=== PATIENT | male | born 1980 | race Caucasian/White ===

== ENCOUNTER 2016-05-19 14:26 | Emergency (ER) | payer OTHER ==
--- NOTE | 2016-05-19 15:23 | DIAGNOSTIC IMAGING REPORT ---
PROCEDURE: CT HEAD WITHOUT CONTRAST INDICATION: HEADACHE TECHNIQUE: Axial CT images were acquired through the head. Coronal and sagittal reformations were created. COMPARISON: None. FINDINGS: No intracranial hemorrhage or extraaxial fluid collections. Ventricles are normal in size, shape and position. There is no mass, mass effect or midline shift. The garrison-white matter differentiation is normal. There is no edema. The calvarium is intact. The paranasal sinuses and mastoid air cells are normally aerated. The extracranial soft tissues and orbits are normal. IMPRESSION: 1. No CT evidence of acute intracranial process. All CT scans at this facility use dose modulation, iterative reconstruction, and/or weight-based dosing when appropriate to reduce radiation dose to as low as reasonably achievable.
--- NOTE | 2016-05-19 15:25 | DIAGNOSTIC IMAGING REPORT ---
PROCEDURE: XR CHEST 2 VIEW INDICATION: CHEST PAIN TECHNIQUE: PA and lateral views. COMPARISON: Chest 01/30/2014 FINDINGS:Allowing for suboptimal inspiration, there is minor linear scarring or subsegmental atelectasis at one of the anterior lung bases (best seen on the lateral view). Lungs are otherwise clear. Heart mediastinum are normal. Thorax is normal. IMPRESSION: 1. Minor linear scarring or subsegmental atelectasis at one of the lung bases. 2. Otherwise negative chest.
--- NOTE | 2016-05-19 15:35 | DIAGNOSTIC IMAGING REPORT ---
PROCEDURE: XR SHOULDER 2 OR MORE VW-RIGHT INDICATION: TRAUMA/INJURY TECHNIQUE: Three views. COMPARISON: shoulder 01/30/2014 FINDINGS: Osseous structures and joint spaces are normal. IMPRESSION: 1. Normal right shoulder.
--- NOTE | 2016-05-19 15:57 | ED ORDER SUMMARY ---
..... Patient: CHRISTIANO ROWLAND OrderSheet [facility] VisitID: [id number] [place] [address] 36y, M Registration Date/Time: 05/19/2016 ORDER SHEET Weight: 122.7 kg (stated) Allergies: PCN GENERAL ORDERS: Stack Supervisor (Continuous) (14:38 05/19/2016 EKoroleva P.A.-C) (15:08 HOShaughnessy R.N.) Chest 2V Urgent (14:38 05/19/2016 EKoroleva P.A.-C) (Ack 14:39 NHouse ER Tech1) (15:08 HOShaughnessy R.N.) CT Head wo Cont Urgent (14:38 05/19/2016 EKoroleva P.A.-C) (Ack 14:39 NHouse ER Tech1) (15:08 HOShaughnessy R.N.) Cardiac Panel Stat (14:38 05/19/2016 EKoroleva P.A.-C) (Ack 14:39 NHouse ER Tech1) (14:56 LNations ER Tech1) EKG - ER Stat (14:38 05/19/2016 EKoroleva P.A.-C) (14:45 SBalde R.N.) Shoulder 2V or more Right Urgent (14:39 05/19/2016 EKoroleva P.A.-C) (Ack 14:40 NHouse ER Tech1) (15:08 HOShaughnessy R.N.) MEDICATION ORDERS: IV FLUIDS: ORDER SHEET NOTES: [Electronically signed by Sunny Hudson R.N. (16:06 05/19/2016)] [Electronically signed by Sarika Nelson P.A.-C (16:22 05/19/2016)] [Electronically locked/signed by Sunny Hudson R.N. (16:06 05/19/2016)]
--- NOTE | 2016-05-19 15:57 | ED ORDER SUMMARY ---
..... Patient: CHRISTIANO ROWLAND OrderSheet [facility] VisitID: [id number] [place] [address] 36y, M Registration Date/Time: 05/19/2016 ORDER SHEET Weight: 122.7 kg (stated) Allergies: PCN GENERAL ORDERS: Irrigator Sprinkling System (Continuous) (14:38 05/19/2016 EKoroleva P.A.-C) (15:08 HOShaughnessy R.N.) Chest 2V Urgent (14:38 05/19/2016 EKoroleva P.A.-C) (Ack 14:39 NHouse ER Tech1) (15:08 HOShaughnessy R.N.) CT Head wo Cont Urgent (14:38 05/19/2016 EKoroleva P.A.-C) (Ack 14:39 NHouse ER Tech1) (15:08 HOShaughnessy R.N.) Cardiac Panel Stat (14:38 05/19/2016 EKoroleva P.A.-C) (Ack 14:39 NHouse ER Tech1) (14:56 LNations ER Tech1) EKG - ER Stat (14:38 05/19/2016 EKoroleva P.A.-C) (14:45 SBalde R.N.) Shoulder 2V or more Right Urgent (14:39 05/19/2016 EKoroleva P.A.-C) (Ack 14:40 NHouse ER Tech1) (15:08 HOShaughnessy R.N.) MEDICATION ORDERS: IV FLUIDS: ORDER SHEET NOTES: [Electronically signed by Sunny uHdson R.N. (16:06 05/19/2016)] [Electronically signed by Sarika Nelson P.A.-C (16:22 05/19/2016)] [Electronically locked/signed by Sunny Hudson R.N. (16:06 05/19/2016)]
--- NOTE | 2016-05-19 15:57 | ED NURSING NOTES ---
Clinical Report - Nurses [facility] [address] [place] [address] 05/19/2016 14:28 Patient: CHRISTIANO ROWLAND TRIAGE Triage time 14:35 May 19 2016. Acuity: LEVEL 3. Chief Complaint: DIZZINESS. Alert. No acute distress. AMELIA COMA SCORE: Amelia Coma Scale: 15- eyes open spontaneously (4); best verbal response- oriented x 4 (5); best motor response- obeys commands (6). --14:43 Delilah Lowery R.N. 14:35 05/19/16. BP: 147/105. HR: 102. RR: 18. O2 saturation: 98%. Temp: 98.3 F. --14:43 Delilah Lowery R.N. Weight: 122.7 kg stated. Height/Length: 69 inches Per Patient. BMI: 40. --14:35 Delilah Lowery R.N. Medications Fioricet Oral (Capsule 50-300-40 mg) 50/325mg (Dr. Lott manages). HumaLOG Subcutaneous. Hydrocodone-Acetaminophen Oral (Tablet 10-325 mg) (Dr. Lott manages). Insulin Pump. Maxiline (for Vertigo). Topamax Oral, as needed (for Migraines). --14:38 Delilah Lowery R.N. Medication/allergy information source: the patient. --14:43 Delilah Lowery R.N. Allergies PCN. --14:38 Delilah Lowery R.N. History Arrived by private vehicle. Historian: patient. Accompanied by family and spouse. Primary physician (Dr. Lott/ Dr. Irizarry - Neuro). ( Pt states he passed out in the kitchen this am while pouring a cup of coffee. He states he has a Hx of this d/t his Neuropathy. Sees a Neurologist at [facility] for this. Fell onto his Right Shoulder. C/O pain.). This started just prior to arrival 0930 am. Patient was last known well (0925 this am.). 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 PAST MEDICAL HX: Immunizations: seasonal influenza. SOCIAL HX: Former smoker. Occasional alcohol use. History of drug use: marijuana. No infectious disease exposure. FALL RISK ASSESSMENT: Fall risk assessment completed. No fall risk identified. NUTRITIONAL RISK ASSESSMENT: The nutritional risk assessment revealed no deficiencies. FUNCTIONAL ASSESSMENT: Functional assessment: no impairments noted. LEARNING NEEDS ASSESSMENT: The learning needs assessment revealed no barriers. SKIN INTEGRITY ASSESSMENT: Skin integrity risk assessment completed. No skin integrity risk identified. --14:43 Delilah Lowery R.N. PHYSICAL ASSESSMENT Ambulatory to room. GENERAL / NEURO / PSYCH: Oriented X 4. Speech within normal limits. RESPIRATORY: Respirations not labored. CVS: Capillary refill less than 2 seconds. --14:44 Delilah Lowery R.N. NURSING PROGRESS NOTES EKG time: (1443). EKG was performed by a tech and shown to the PA. --14:43 Delilah Lowery R.N. ( Pt has had his EKG and Labs done in the triage room.). --14:44 Delilah Lowery R.N. ( Labs being drawn by Nicole scooping machine tender.). --14:45 Delilah Lowery R.N. Patient transported to DC by wheelchair with tech. --14:55 Delilah Lowery R.N. Patient ID band checked for patient name and birthdate: patient confirmed. Blood samples drawn from the left antecubital space with 23g butterfly by tech per protocol ; labeled in presence of the patient: rainbow set and red, green, purple and blue top. --14:56 Nicole Mac ER Tech1 Finger stick glucose: 146 mg/dL; performed by nurse; result shown to the ED physician. The patient is calm and resting quietly. --15:21 Sunny Hudson R.N. 15:20 05/19/16. BP: 140/99. HR: 93. RR: 16. O2 saturation: 97%. --15:21 Sunny Hudson R.N. DISPOSITION / DISCHARGE Condition at departure: improved. The goals identified in the patient's plan of care were met. Fall risk assessment completed. Risk factors identified include patient history of fainting. No learning barriers present. Discharge instructions provided and reviewed with the patient. Reviewed medication(s) side effects, precautions, dosing and course information. Patient verbalized understanding. Written instructions provided in [place]. The patient was discharged home and accompanied by family. He left the Emergency Department ambulatory and via private vehicle. Spouse driving. --15:59 Sunny Hudson R.N. 15:58 05/19/16. BP: 131/85. HR: 100. RR: 16. O2 saturation: 94%. Temp: 98.2 F (oral). --15:59 Sunny Hudson R.N. Departure time: 1603 PM. --16:03 Sunny Hudson R.N. Locked/Released at 05/19/2016 16:06 by Sunny Hudson R.N.
--- NOTE | 2016-05-19 15:57 | ED NURSING NOTES ---
Clinical Report - Nurses [facility] [address] [place] [address] 05/19/2016 14:28 Patient: CHRISTIANO ROWLAND TRIAGE Triage time 14:35 May 19 2016. Acuity: LEVEL 3. Chief Complaint: DIZZINESS. Alert. No acute distress. AMELIA COMA SCORE: Amelia Coma Scale: 15- eyes open spontaneously (4); best verbal response- oriented x 4 (5); best motor response- obeys commands (6). --14:43 Delilah Lowery R.N. 14:35 05/19/16. BP: 147/105. HR: 102. RR: 18. O2 saturation: 98%. Temp: 98.3 F. --14:43 Delilah Lowery R.N. Weight: 122.7 kg stated. Height/Length: 69 inches Per Patient. BMI: 40. --14:35 Delilah Lowery R.N. Medications Fioricet Oral (Capsule 50-300-40 mg) 50/325mg (Dr. Lott manages). HumaLOG Subcutaneous. Hydrocodone-Acetaminophen Oral (Tablet 10-325 mg) (Dr. Lott manages). Insulin Pump. Maxiline (for Vertigo). Topamax Oral, as needed (for Migraines). --14:38 Delilah Lowery R.N. Medication/allergy information source: the patient. --14:43 Delilah Lowery R.N. Allergies PCN. --14:38 Delilah Lowery R.N. History Arrived by private vehicle. Historian: patient. Accompanied by family and spouse. Primary physician (Dr. Lott/ Dr. Irizarry - Neuro). ( Pt states he passed out in the kitchen this am while pouring a cup of coffee. He states he has a Hx of this d/t his Neuropathy. Sees a Neurologist at [facility] for this. Fell onto his Right Shoulder. C/O pain.). This started just prior to arrival 0930 am. Patient was last known well (0925 this am.). 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 PAST MEDICAL HX: Immunizations: seasonal influenza. SOCIAL HX: Former smoker. Occasional alcohol use. History of drug use: marijuana. No infectious disease exposure. FALL RISK ASSESSMENT: Fall risk assessment completed. No fall risk identified. NUTRITIONAL RISK ASSESSMENT: The nutritional risk assessment revealed no deficiencies. FUNCTIONAL ASSESSMENT: Functional assessment: no impairments noted. LEARNING NEEDS ASSESSMENT: The learning needs assessment revealed no barriers. SKIN INTEGRITY ASSESSMENT: Skin integrity risk assessment completed. No skin integrity risk identified. --14:43 Delilah Lowery R.N. PHYSICAL ASSESSMENT Ambulatory to room. GENERAL / NEURO / PSYCH: Oriented X 4. Speech within normal limits. RESPIRATORY: Respirations not labored. CVS: Capillary refill less than 2 seconds. --14:44 Delilah Lowery R.N. NURSING PROGRESS NOTES EKG time: (1443). EKG was performed by a tech and shown to the PA. --14:43 Delilah Lowery R.N. ( Pt has had his EKG and Labs done in the triage room.). --14:44 Delilah Lowery R.N. ( Labs being drawn by Nicole spool cleaner hand.). --14:45 Delilah Lowery R.N. Patient transported to [place] by wheelchair with tech. --14:55 Delilah Lowery R.N. Patient ID band checked for patient name and birthdate: patient confirmed. Blood samples drawn from the left antecubital space with 23g butterfly by tech per protocol ; labeled in presence of the patient: rainbow set and red, green, purple and blue top. --14:56 Nicole Mac ER Tech1 Finger stick glucose: 146 mg/dL; performed by nurse; result shown to the ED physician. The patient is calm and resting quietly. --15:21 Sunny Hudson R.N. 15:20 05/19/16. BP: 140/99. HR: 93. RR: 16. O2 saturation: 97%. --15:21 Sunny Hudson R.N. DISPOSITION / DISCHARGE Condition at departure: improved. The goals identified in the patient's plan of care were met. Fall risk assessment completed. Risk factors identified include patient history of fainting. No learning barriers present. Discharge instructions provided and reviewed with the patient. Reviewed medication(s) side effects, precautions, dosing and course information. Patient verbalized understanding. Written instructions provided in [place]ian. The patient was discharged home and accompanied by family. He left the Emergency Department ambulatory and via private vehicle. Spouse driving. --15:59 Sunny Hudson R.N. 15:58 05/19/16. BP: 131/85. HR: 100. RR: 16. O2 saturation: 94%. Temp: 98.2 F (oral). --15:59 Sunny Hudson R.N. Departure time: 1603 PM. --16:03 Sunny Hudson R.N. Locked/Released at 05/19/2016 16:06 by Sunny Hudson R.N.
--- NOTE | 2016-05-19 15:57 | ED CLINICAL REPORT ---
Clinical Report - Physicians/Mid Levels [facility] [address] [place] [address] 05/19/2016 14:28 Patient: CHRISTIANO ROWLAND [facility]#: [id number] Time Seen: 14:39 May 19 2016. Arrived- By private vehicle. Historian- patient. HISTORY OF PRESENT ILLNESS Chief Complaint: SINGLE SYNCOPAL EPISODE. The patient has recovered. This occurred 9 am. Event was not witnessed. The patient had preceding symptoms of light-headedness and nausea. He had preceding symptoms of dim vision (everything went black). The patient felt faint. Location of injuries- (r. shoulder). (36-year-old male, with a history of neurology, which at times causes him to have syncopal events, had one today, while standing, fell, onto his right shoulder, has had pain. Has had a headache. Feels dizzy.). REVIEW OF SYSTEMS No vomiting. All systems otherwise negative, except as recorded above. SOCIAL HISTORY Former smoker. Alcohol use. History of drug use: marijuana. ADDITIONAL NOTES The nursing notes have been reviewed. PHYSICAL EXAM Vital Signs: 05/19/2016 14:35 BP: 147/105. HR: 102. RR: 18. O2 saturation: 98%. Temp: 98.3 F. Appearance: Alert. No acute distress. Eyes: Pupils equal, round and reactive to light. No nystagmus. ENT: Normal ENT inspection. Moist mucous membranes. Pharynx normal. Neck: Normal inspection. Neck supple. No meningeal signs. CVS: Normal heart rate and rhythm. Heart sounds normal. Pulses normal. Rhythm normal. No cardiac murmur. Respiratory: No respiratory distress. No respiratory distress. Breath sounds normal. No decreased air movement. Abdomen: Soft. Back: Normal inspection. No CVA tenderness. Skin: Normal skin color. Extremities: Right clavicle area. No tenderness or laceration. Right shoulder: mild tenderness located in the anterior aspect of the shoulder. Limited ROM (diminished abduction). Neurovascular intact distally. No swelling, ecchymosis, puncture wound, foreign body or deformity. Neuro: Alert. Oriented X 3. Mood/affect normal. Speech normal. Cranial nerves normal (as tested). No cerebellar findings. No motor deficit. No sensory deficit. LABS, X-RAYS, AND EKG EKG: EKG time: (1443). No acute process. No acute ischemia. Normal EKG. Rate: 89. Normal P waves. Normal QRS complex. Normal axis. Normal ST and T waves and QT. The study has been interpreted contemporaneously. The study has been independently viewed by me. The EKG appears to be a good tracing. Chest X-ray: (IMPRESSION: 1. Minor linear scarring or subsegmental atelectasis at one of the lung bases. 2. Otherwise negative chest. Electronically Final signed by:Keagan Camara MD 05/19/2016 3:28:21 PM). Rt Shoulder X-ray: (IMPRESSION: 1. Normal right shoulder. Electronically Final signed by:Keagan Camara MD 05/19/2016 3:38:41 PM). CT Head: (IMPRESSION: 1. No CT evidence of acute intracranial process. All CT scans at this facility use dose modulation, iterative reconstruction, and/or weight-based dosing when appropriate to reduce radiation dose to as low as reasonably achievable. Electronically Final signed by:Keagan Camara MD 05/19/2016 3:26:59 PM). Laboratory Tests: CBC w Diff: (AKI: 05/19/2016 14:50) ( MsgRcvd 05/19/2016 15:05) Final results Test Result Flag Units (Reference) WHITE BLOOD COUNT 7.9 K/uL (4.5-11.5) RED BLOOD COUNT 5.33 M/uL (4.50-5.90) HEMOGLOBIN 15.9 gm/dL (13.5-17.5) HEMATOCRIT 47.3 % (41.0-53.0) MEAN CELL VOLUME 89 fL (80-100) MEAN CORPUSCULAR HGB 30 pg (26-34) MEAN CORPUSCULAR HGB CONC 34 g/dL (31-37) RED CELL DISTRIBUTION WIDTH 12.6 % (11.6-14.8) PLATELET COUNT 409 H K/uL (150-400) NEUTROPHIL % 60.5 % (50-75) LYMPH % 29.3 % (25-40) MONO % 6.8 % (3-14) EOSINOPHIL % 2.9 % (0-4) BASOPHIL % 0.5 % (0-2) CHEM 13 PANEL: (AKI: 05/19/2016 14:50) ( MsgRcvd 05/19/2016 15:28) Final results Test Result Flag Units (Reference) GLUCOSE 170 H mg/dL (70-110) BUN 15 mg/dL (7-18) CREATININE 0.9 mg/dL (0.6-1.3) Estimated GFR >60 mL/min Estimated GFR- >60 mL/min Note: Persistent reduction over 3 months in eGFR<60 mL/min/1.73 m2 defines CKD. Patients with eGFR values>=60 mL/min/1.73 m2 may also have CKD if evidence ofpersistent proteinuria. Additional information may be foundat www.kidney.org. SODIUM 139 mmol/L (136-145) POTASSIUM 3.9 mmol/L (3.5-5.1) CHLORIDE 103 mmol/L (98-107) CARBON DIOXIDE 27 mmol/L (21-32) CALCIUM 9.4 mg/dL (8.5-10.1) TOTAL PROTEIN 8.2 g/dL (6.4-8.2) ALBUMIN 4.1 g/dL (3.3-5.0) BILIRUBIN, TOTAL 0.3 mg/dL (0.0-1.0) ALKALINE PHOSPHATASE 132 H U/L (46-116) AST (SGOT) 18 U/L (15-37) ALT (SGPT) 36 U/L (12-78) CPK 134 U/L (24-260) MAGNESIUM 2.0 mg/dL (1.8-2.4) TROPONIN I <0.05 L ng/mL (0.00-1.5) TROPONIN REFERENCE RANGE:<0.1 NEGATIVE0.1-1.5 INDETERMINANT>1.5 POSITIVE . PROGRESS AND PROCEDURES Course of Care: patient with no new neck pain, fall range of motion, headache, concerning for possible concussion, at this time unclear. Patient warned against such. Has had such in the past. Otherwise negative workup in the ER, he has had a history of similar syncopal events, possibly 1-2 per year. This was not new to him, otherwise cardiac etiology at this time was ruled out, incident occurred almost 8 hours prior to arrival, EKG unremarkable, chest x-ray unremarkable, CT head without any signs of hemorrhage. Patient here stable with his significant other. Able to ambulate. XR of shoulders unremarkable. 05/19/2016 15:58 BP: 131/85. HR: 100. RR: 16. O2 saturation: 94%. Temp: 98.2 F. Patient is stable. Patient/family counseled. Disposition: Discharged. CLINICAL IMPRESSION Syncope secondary to illness. Contusion to the right shoulder. Fall. INSTRUCTIONS Drink plenty of fluids. Prescription Medications: Zofran (orally disintegrating tablets) 4 mg: take 1 orally every 6 hours for 3 days as needed for nausea. Dispense ten (10). No refill. Substitution is permissible. Follow-up: Follow up with your doctor in four days. (Electronically signed by Sarika Nelson P.A.-C 05/19/2016 16:22)
--- NOTE | 2016-05-19 16:22 | ED MED RECONCILIATION SUMMARY ---
Patient: CHRISTIANO ROWLAND Medication Reconciliation Report [facility] VisitID: [id number] [place] [address] 36y, M Registration Date/Time: 05/19/2016 Weight: 122.7 kg Height/Length: 69 in. BMI: 40.0 ALLERGIES: PCN The patient's Home Medications are listed below: THE FOLLOWING MEDICATIONS NEED TO BE RECONCILED: Fioricet Oral (50-300-40 mg) 50/325mg , Dr. Lott manages HumaLOG Subcutaneous Hydrocodone-Acetaminophen Oral (10-325 mg), Dr. Lott manages Insulin Pump Maxiline, for Vertigo Topamax Oral, for Migraines The source(s) of the original Home Medication information: patient The following Medications were given to the patient in the Emergency Department: None. The following Medications were prescribed to the patient: Zofran (orally disintegrating tablets) 4 mg: take 1 orally every 6 hours for 3 days as needed for nausea. Dispense ten (10). No refill. Substitution is permissible. -- Sarika Nelson P.ALidiaC
--- NOTE | 2016-05-19 16:22 | ED MED RECONCILIATION SUMMARY ---
Patient: CHRISTIANO ROWLAND Medication Reconciliation Report [facility] VisitID: [id number] [place] [address] 36y, M Registration Date/Time: 05/19/2016 Weight: 122.7 kg Height/Length: 69 in. BMI: 40.0 ALLERGIES: PCN The patient's Home Medications are listed below: THE FOLLOWING MEDICATIONS NEED TO BE RECONCILED: Fioricet Oral (50-300-40 mg) 50/325mg , Dr. Lott manages HumaLOG Subcutaneous Hydrocodone-Acetaminophen Oral (10-325 mg), Dr. Lott manages Insulin Pump Maxiline, for Vertigo Topamax Oral, for Migraines The source(s) of the original Home Medication information: patient The following Medications were given to the patient in the Emergency Department: None. The following Medications were prescribed to the patient: Zofran (orally disintegrating tablets) 4 mg: take 1 orally every 6 hours for 3 days as needed for nausea. Dispense ten (10). No refill. Substitution is permissible. -- Sarika Nelson P.ALidiaC
--- NOTE | 2016-05-19 16:22 | ED DISCHARGE INSTRUCTIONS ---
Patient: CHRISTIANO ROWLAND General Instructions [facility] VisitID: [id number] [place] [address] 36y, M Registration Date/Time: 05/19/2016 Syncope secondary to illness. Contusion to the right shoulder. Fall. INSTRUCTIONS Drink plenty of fluids. Prescription Medications: Zofran (orally disintegrating tablets) 4 mg: take 1 orally every 6 hours for 3 days as needed for nausea. Dispense ten (10). No refill. Substitution is permissible. Follow-up: Follow up with your doctor in four days. ADDITIONAL INFORMATION Fainting:Uncertain Cause Fainting (syncope) is a temporary loss of consciousness ("passing out"). It occurs when blood flow to the brain is reduced. Near-fainting ("near-syncope") is very similar to fainting, but you do not fully "pass out". The common minor causes of fainting include: sudden fear, pain, nausea, emotional stress and overexertion. Suddenly standing up after sitting or lying for a long time can also cause fainting. The more serious causes for fainting are due to either a very slow or very fast or very slow heart beat ("arrhythmia"), other types of heart disease, dehydration, blood loss, seizure, stroke or ruptured blood vessel in the brain. Taking too much high blood pressure medicine can also cause low blood pressure and fainting. The exact cause of your episode is not certain. However, the tests today did not show any of the serious causes of fainting. Sometimes further testing is needed to find out if a serious problem exists. Therefore, it is important that you follow-up with your doctor as advised. Home Care: 1) Rest today. You may resume your normal activities when you are feeling back to normal. It is best to remain with someone who can check on you for the next 24 hours to watch for another episode of fainting. 2) If you become light-headed or dizzy, lie down immediately or sit with your head between your knees. 3) Because we do not know the exact cause of your near fainting spell, it is possible for another spell to occur without warning. Therefore, do not drive a car or operate dangerous equipment, do not take a bath alone (use a shower instead) and do not swim alone until your doctor says that you are no longer in danger of having another fainting spell. Follow Up with your doctor as advised. Get Prompt Medical Attention if any of the following occur: -- Another fainting spell occurs, which is not explained by the common causes listed above -- Chest, arm, neck, jaw, back or abdominal pain -- Shortness of breath -- Severe headache or seizure -- Blood in vomit, stools (black or red color) -- Unexpected vaginal bleeding -- Palpitations (very rapid or very slow or irregular heart beat) -- Signs of stroke: Weakness of an arm or leg or one side of the face Difficulty with speech or vision Extreme drowsiness, confusion, dizziness or fainting Shoulder Contusion You have a contusion of your shoulder. This causes local pain, swelling, and sometimes bruising. There are no broken bones. This injury takes a few days, or up to six weeks to heal, depending on the severity. Moderate to severe shoulder contusions are treated with a sling or shoulder immobilizer. Minor contusions can be treated without any special support. Home Care: If a sling was provided, leave it in place for the time advised by your doctor. If you are unsure how long to wear it, ask for advice. If the sling becomes loose, adjust it so that your forearm is level with the ground and the shoulder feels well supported. Apply an ice pack (ice cubes in a plastic bag, wrapped in a towel) over the injured area for 20 minutes every 1 to 2 hours the first day for pain relief. Continue this 3 to 4 times a day until the pain and swelling go away. You may use acetaminophen (Tylenol) or ibuprofen (Motrin, Advil) to control pain, unless another pain medicine was prescribed. (NOTE: If you have chronic liver or kidney disease or ever had a stomach ulcer or GI bleeding, talk with your doctor before using these medicines.) Shoulder joints become stiff if left in a sling for too long. [id number] exercises should usually be started within the first ten days after injury. Consult your doctor on what type of exercises to do and how soon to start. Unless you were told otherwise, you may remove the sling to shower or bathe. Follow Up with your doctor, or as advised by our staff, if you are not starting to improve within the next 5 days. Get Prompt Medical Attention if any of the following occur: Pain or swelling increases Large amount of bruising of the shoulder or upper arm Hand or fingers become cold, blue, numb or tingly Fall, Uncertain Cause You have had a fall today. but the cause of your fall is not certain. Falls can occur due to slipping, tripping or losing your balance. A fall can also occur from a fainting spell or seizure. Because the cause of your fall today is not certain, it is possible that a fainting spell or seizure was the cause. This means that it could happen again, without warning. If you fall again, without a cause, then you should return to this facility promptly to have further tests. Otherwise, follow up with your doctor as explained below. Home Care: 1) Rest today and resume your normal activities as soon as you are feeling back to normal. It is best to remain with someone who can check on you for the next 24 hours to watch for another episode of falling. 2) If you were injured during the fall, follow the advice from your doctor regarding care of your injury. 3) If you become light-headed or dizzy, lie down immediately or sit and lean forward with your head down. 4) As a precaution, do not drive a car or operate dangerous equipment, do not take a bath alone (use a shower instead) and do not swim alone until you see your doctor. A condition causing fainting or seizures must be ruled out before resuming these activities. 5)You may use acetaminophen (Tylenol) or ibuprofen (Motrin, Advil) to control pain, unless another pain medicine was prescribed. [ NOTE : If you have chronic liver or kidney disease or ever had a stomach ulcer or GI bleeding, talk with your doctor before using these medicines.] 6) Keep your appointments for any further testing that may have been scheduled for you. Follow Up: Unless, given other advice, call your doctor on the next office day to advise of your fall and to schedule an appointment. Get Prompt Medical Attention if any of the following occur: -- Another unexplained fall -- Dizziness, fainting or seizure -- Severe headache -- Chest pain or shortness of breath -- Palpitations (very rapid or very slow or irregular heart beat) -- Blood in vomit, stools (black or red color) -- Weakness of an arm or leg or one side of the face -- Difficulty with speech or vision Ondansetron Oral disintegrating tablet What is this medicine? ONDANSETRON (on LINH se siria) is used to treat nausea and vomiting caused by chemotherapy. It is also used to prevent or treat nausea and vomiting after surgery. How should I use this medicine? These tablets are made to dissolve in the mouth. Do not try to push the tablet through the foil backing. With dry hands, peel away the foil backing and gently remove the tablet. Place the tablet in the mouth and allow it to dissolve, then swallow. While you may take these tablets with water, it is not necessary to do so. Talk to your community relations liaison regarding the use of this medicine in children. Special care may be needed. What side effects may I notice from receiving this medicine? Side effects that you should report to your doctor or health animal caregiver as soon as possible: allergic reactions like skin rash, itching or hives, swelling of the face, lips, or tongue breathing problems dizziness fast or irregular heartbeat feeling faint or lightheaded, falls fever and chills swelling of the hands and feet tightness in the chest Side effects that usually do not require medical attention (report to your doctor or health animal caregiver if they continue or are bothersome): constipation or diarrhea headache What may interact with this medicine? Do not take this medicine with any of the following medications: -apomorphine -cisapride -dofetilide -dronedarone -pimozide -thioridazine -ziprasidone This medicine may also interact with the following medications: -carbamazepine -phenytoin -rifampicin -tramadol -other medicines that prolong the QT interval (cause an abnormal heart rhythm) What if I miss a dose? If you miss a dose, take it as soon as you can. If it is almost time for your next dose, take only that dose. Do not take double or extra doses. Where should I keep my medicine? Keep out of the reach of children. Store between 2 and 30 degrees C (36 and 86 degrees F). Throw away any unused medicine after the expiration date. What should I tell my health care provider before I take this medicine? They need to know if you have any of these conditions: heart disease history of irregular heartbeat liver disease low levels of magnesium or potassium in the blood an unusual or allergic reaction to ondansetron, granisetron, other medicines, foods, dyes, or preservatives or trying to get breast-feeding What should I watch for while using this medicine? Check with your doctor or health animal caregiver as soon as you can if you have any sign of an allergic reaction. You have been given the following additional information: Syncope, Unk Cause Shoulder Contusion Fall, Uncertain Cause Ondansetron Oral disintegrating tablet (Electronically signed by Sarika Nelson P.A.-C 05/19/2016 16:22)
--- NOTE | 2016-05-19 16:22 | ED MAR SUMMARY ---
..... Medication Administration Record [facility] [address] [place], [place] [id number] Patient: CHRISTIANO ROWLAND Visit ID: [id number] 36y, M Weight: 122.7 kg Height/Length: 69 in BMI: 40 ALLERGIES: PCN
--- NOTE | 2016-05-19 16:22 | ED MAR SUMMARY ---
..... Medication Administration Record [facility] [address] [place], [place] [id number] Patient: CHRISTIANO ROWLAND Visit ID: [id number] 36y, M Weight: 122.7 kg Height/Length: 69 in BMI: 40 ALLERGIES: PCN
== END 2016-05-19 16:06 | disposition home or self-care (01) ==
LOC: ED SRH 14:26
DX: S40.011A Contusion of right shoulder, initial encounter (principal); R55 Syncope and collapse; W19.XXXA Unspecified fall, initial encounter; Y93.89 Activity, other specified; Y92.89 Other specified places as the place of occurrence of the external cause; Z79.4 Long term (current) use of insulin; Z79.899 Other long term (current) drug therapy; Z88.0 Allergy status to penicillin; Z87.891 Personal history of nicotine dependence